=== PATIENT | male | born 1965 | race African-American/Black ===

== ENCOUNTER 2021-08-05 12:30 | Inpatient (IN) ==
[2021-08-05 14:35] LABS: Basophils # 0.1 10*3/uL (0.0-0.2); Basophils % 0.4 % (0.0-0.8); Hematocrit 43.2 VOL% (42.0-52.0); Hemoglobin 14.7 GM/DL (14.0-18.0); Immature Granulocytes % 0.5 %; Immature Granulocytes Absolute 0.08 #; Lymphocytes % 6.3 % (21.2-54.2); Mean Corpuscular Volume 103.6 FL (87-102); Mean Platelet Volume 8.9 FL (9.6-12.0); Monocytes % 8.1 % (1.7-12.7); Neutrophils % 84.7 % (38.7-73.9); Platelet Count 267 T/CUMM (130-400); Red Blood Count 4.17 MC/CUMM (3.8-5.5); Red Cell Distribution Width 13.2 % (9.3-17.3); White Blood Count 15.8 T/CUMM (4-12)
[2021-08-05 14:45] LABS: INR 0.9; PT Patient Result 10.3 SECS (10.5-12.0)
[2021-08-05 14:51] LABS: Calcium 9.4 MG/DL (8.5-10.1); Osmolality,Calculated 272.8 MOS/KG (273-304); Potassium 4.1 MMOL/L (3.5-5.1)
[2021-08-05] MEDS ORDERED: HEPARIN 1,000 UNIT/1 ML VIAL IV STA (15:16)
[2021-08-05] MEDS ORDERED: HEPARIN DRIP 25,000 UNITS/500 ML PREMIX IV SCH (15:30)
[2021-08-05] MEDS ORDERED: HEPARIN 5,000 UNIT/1 ML VIAL ONE (15:59)
[2021-08-05] MEDS ORDERED: ACETAMINOPHEN 325 MG TABLET PO PRN (16:21)
[2021-08-05] MEDS ORDERED: ONDANSETRON 4 MG/2 ML VIAL IV PRN (16:21)
[2021-08-05] MEDS ORDERED: chlordiazePOXIDE 10 MG CAPSULE PO SCH (17:00)
[2021-08-06] MEDS ORDERED: ceFAZolin 2,000 MG/50 ML DUPLEX IV ONE (06:30)
[2021-08-06] MEDS: PANTOPRAZOLE 40 MG TABLET PO SCH (08:25)
[2021-08-06] MEDS ORDERED: HEPARIN 5,000 UNIT/1 ML VIAL ONE (08:35)
[2021-08-06] MEDS ORDERED: ROCURONIUM 50 MG/5 ML VIAL IV ONE (08:40)
[2021-08-06] MEDS ORDERED: MIDAZOLAM 2 MG/2 ML VIAL ONE (08:40)
[2021-08-06] MEDS ORDERED: propofoL 200 MG/20 ML VIAL IV ONE (08:40)
[2021-08-06] MEDS ORDERED: LIDOCAINE 2% 5 ML VIAL ONE (08:40)
[2021-08-06] MEDS ORDERED: fentaNYL 100 MCG/2 ML VIAL ONE (08:40)
[2021-08-06] MEDS ORDERED: PHENYLEPHRINE 1 MG/10 ML SYRINGE IV ONE (08:50)
[2021-08-06] MEDS ORDERED: PHENYLEPHRINE DRIP 20 MG/250 ML PREMIX IV ONE (08:50)
[2021-08-06] MEDS ORDERED: ESMOLOL 100 MG/10 ML VIAL IV ONE (09:30)
[2021-08-06] MEDS ORDERED: LACTATED RINGERS 1,000 ML IV SCH ×2 (09:30→11:00)
[2021-08-06] MEDS ORDERED: DEXAMETHASONE 4 MG/1 ML VIAL ONE (10:10)
[2021-08-06] MEDS ORDERED: HEPARIN 10,000 UNIT/10 ML VIAL ONE (10:10)
[2021-08-06] MEDS ORDERED: ONDANSETRON 4 MG/2 ML VIAL ONE (10:10)
[2021-08-06] MEDS ORDERED: SEVOFLURANE 1 UNIT/15 MINUTE INH ONE ×4 (10:11→10:21)
[2021-08-06] MEDS ORDERED: ALTEPLASE 2 MG VIAL ONE (10:15)
[2021-08-06] MEDS ORDERED: SUGAMMADEX 200 MG/2 ML VIAL IV ONE (10:18)
[2021-08-06] MEDS ORDERED: TISSUE ADHESIVE 1 EACH APPLICATOR TOP ONE (10:43)
[2021-08-06] MEDS ORDERED: HYDROmorphone 2 MG/1 ML VIAL IV PRN ×2 (10:57→11:20)
[2021-08-06] MEDS ORDERED: ONDANSETRON 4 MG/2 ML VIAL IV PRN (11:20)
[2021-08-06] MEDS: ASPIRIN CHEW 81 MG TABLET PO SCH (13:35)
[2021-08-06] MEDS: chlordiazePOXIDE 25 MG CAPSULE PO SCH ×2 (13:35→20:50)
[2021-08-06] MEDS ORDERED: NICOTINE 21 MG/24 HR PATCH TRANSDERM PRN (17:10)
[2021-08-07] MEDS ORDERED: ENOXAPARIN 40 MG/0.4 ML SYRINGE SUBCUT SCH (05:00)
[2021-08-07 05:55] LABS: Basophils % 0.1 % (0.0-0.8); Eosinophils % 0.6 % (0.00-10.9); Hematocrit 32.9 VOL% (42.0-52.0); Immature Granulocytes % 0.3 %; Immature Granulocytes Absolute 0.02 #; Lymphocytes # 1.5 10*3/uL (1.4-4.0); Lymphocytes % 20.9 % (21.2-54.2); Mean Corpuscular HGB Conc 33.7 GM/DL (32-36); Mean Corpuscular Volume 105.4 FL (87-102); Monocytes % 12.3 % (1.7-12.7); Neutrophils % 65.8 % (38.7-73.9)
[2021-08-07 06:02] LABS: Calcium 8.5 MG/DL (8.5-10.1); Osmolality,Calculated 264.4 MOS/KG (273-304)
[2021-08-07 06:03] LABS: Hemoglobin 11.1 GM/DL (14.0-18.0); Platelet Count 190 T/CUMM (130-400); Red Blood Count 3.12 MC/CUMM (3.8-5.5)
[2021-08-07 07:23] VITALS: BP 143/81
[2021-08-07] MEDS: PANTOPRAZOLE 40 MG TABLET PO SCH (09:38)
[2021-08-07] MEDS: ASPIRIN CHEW 81 MG TABLET PO SCH (09:38)
[2021-08-07] MEDS: chlordiazePOXIDE 25 MG CAPSULE PO SCH (09:38)
== END 2021-08-07 10:00 | disposition home or self-care (01) | DRG 254 ==
LOC: N.ED 12:30 → N.EDINP 16:21 → N.3E 18:07
PROVIDERS: ADMIT Surgery; ATTEND Surgery

== ENCOUNTER 2021-09-24 06:12 | Inpatient (IN) ==
[2021-09-19 12:27] LABS: Basophils # 0.1 10*3/uL (0.0-0.2); Basophils % 0.7 % (0.0-0.8); Eosinophils # 0.3 10*3/uL (0.0-0.87); Eosinophils % 3.6 % (0.00-10.9); Hematocrit 37.3 VOL% (42.0-52.0); Hemoglobin 12.5 GM/DL (14.0-18.0); Immature Granulocytes % 0.4 %; Immature Granulocytes Absolute 0.03 #; Lymphocytes # 1.8 10*3/uL (1.4-4.0); Lymphocytes % 26.6 % (21.2-54.2); Mean Corpuscular HGB Conc 33.5 GM/DL (32-36); Mean Corpuscular Volume 103.6 FL (87-102); Mean Platelet Volume 9.1 FL (9.6-12.0); Monocytes % 12.6 % (1.7-12.7); Neutrophils % 56.1 % (38.7-73.9); Platelet Count 302 T/CUMM (130-400); Red Cell Distribution Width 13.5 % (9.3-17.3); White Blood Count 6.9 T/CUMM (4-12)
[2021-09-19 12:54] LABS: Alanine Aminotransferase 12 U/L (16-61); Albumin 3.7 G/DL (3.4-5.0); Alkaline Phosphatase 74 U/L (45-117); Aspartate Amino Transferase 17 U/L (0-37); Bilirubin,Total < 0.39 MG/DL (0.20-1.00); Blood Urea Nitrogen 9 MG/DL (7-18); Calcium 9.2 MG/DL (8.5-10.1); Carbon Dioxide 23 MMOL/L (21-32); Estimated Glom Filtration Rate 83 ML/MIN; Glucose 76 MG/DL (74-106); Osmolality,Calculated 276.4 MOS/KG (273-304); Sodium 140 MMOL/L (136-145); Total Protein 7.3 G/DL (6.4-8.2)
[2021-09-24] MEDS ORDERED: DIAZEPAM 5 MG TABLET PO ONE (06:41)
[2021-09-24] MEDS ORDERED: FAMOTIDINE 20 MG TABLET PO ONE (06:41)
[2021-09-24] MEDS ORDERED: LACTATED RINGERS 1,000 ML IV SCH (07:30)
[2021-09-24] MEDS ORDERED: HEPARIN 5,000 UNIT/1 ML VIAL ONE (07:56)
[2021-09-24] MEDS ORDERED: ROCURONIUM 50 MG/5 ML VIAL IV ONE (08:02)
[2021-09-24] MEDS ORDERED: propofoL 200 MG/20 ML VIAL IV ONE (08:02)
[2021-09-24] MEDS ORDERED: PHENYLEPHRINE 10 MG/1 ML VIAL IV ONE (08:02)
[2021-09-24] MEDS ORDERED: DESFLURANE 1 UNIT/15 MINUTE INH ONE (08:02)
[2021-09-24] MEDS ORDERED: fentaNYL 100 MCG/2 ML VIAL ONE ×2 (08:02→11:17)
[2021-09-24] MEDS ORDERED: LIDOCAINE 2% 5 ML VIAL ONE ×2 (08:02→11:50)
[2021-09-24] MEDS ORDERED: MIDAZOLAM 2 MG/2 ML VIAL ONE (08:29)
[2021-09-24] MEDS ORDERED: LACTATED RINGERS 1,000 ML IV ONE ×3 (08:49→11:43)
[2021-09-24] MEDS ORDERED: ESMOLOL 100 MG/10 ML VIAL IV ONE (08:54)
[2021-09-24] MEDS ORDERED: ONDANSETRON 4 MG/2 ML VIAL ONE (09:06)
[2021-09-24] MEDS ORDERED: KETOROLAC 30 MG/1 ML VIAL ONE (09:06)
[2021-09-24] MEDS ORDERED: ACETAMINOPHEN INJ 1,000 MG/100 ML VIAL IV ONE (09:06)
[2021-09-24] MEDS ORDERED: DEXAMETHASONE 4 MG/1 ML VIAL ONE (09:06)
[2021-09-24] MEDS ORDERED: PROTAMINE SULFATE 50 MG/5 ML VIAL IV ONE (11:43)
[2021-09-24] MEDS ORDERED: ONDANSETRON 4 MG/2 ML VIAL IV PRN ×2 (12:00→12:28)
[2021-09-24] MEDS: HYDROmorphone 2 MG/1 ML VIAL IV PRN ×4 (12:22→22:28)
[2021-09-24] MEDS: LACTATED RINGERS 1,000 ML IV SCH ×2 (15:45→22:27)
[2021-09-25] MEDS: HYDROmorphone 2 MG/1 ML VIAL IV PRN ×4 (04:40→23:59)
[2021-09-25 05:17] LABS: Basophils % 0.2 % (0.0-0.8); Eosinophils % 0.2 % (0.00-10.9); Immature Granulocytes % 0.2 %; Immature Granulocytes Absolute 0.02 #; Lymphocytes # 1.6 10*3/uL (1.4-4.0); Lymphocytes % 17.4 % (21.2-54.2); Mean Corpuscular HGB Conc 33.3 GM/DL (32-36); Mean Corpuscular Volume 105.1 FL (87-102); Mean Platelet Volume 8.9 FL (9.6-12.0); Monocytes % 12.9 % (1.7-12.7); Neutrophils % 69.1 % (38.7-73.9); Platelet Count 219 T/CUMM (130-400); Red Blood Count 3.14 MC/CUMM (3.8-5.5); Red Cell Distribution Width 13.5 % (9.3-17.3)
[2021-09-25 05:35] LABS: Calcium 8.3 MG/DL (8.5-10.1); Osmolality,Calculated 268.1 MOS/KG (273-304); Potassium 3.9 MMOL/L (3.5-5.1)
[2021-09-25] MEDS: LACTATED RINGERS 1,000 ML IV SCH (07:06)
[2021-09-25] MEDS: amLODIPine 5 MG TABLET PO SCH (08:51)
[2021-09-25] MEDS: CLOPIDOGREL 75 MG TABLET PO SCH (08:52)
[2021-09-25] MEDS: ASPIRIN CHEW 81 MG TABLET PO SCH (08:52)
[2021-09-25] MEDS ORDERED: ASPIRIN CHEW 81 MG TABLET PO SCH (09:00)
[2021-09-26 07:49] VITALS: BP 146/91
[2021-09-26] MEDS: CLOPIDOGREL 75 MG TABLET PO SCH (09:24)
[2021-09-26] MEDS: amLODIPine 5 MG TABLET PO SCH (09:24)
[2021-09-26] MEDS: ASPIRIN CHEW 81 MG TABLET PO SCH (09:24)
== END 2021-09-26 11:24 | disposition home or self-care (01) | DRG 254 ==
LOC: N.OR 06:12 → N.SDSINP 06:13 → EDSTATUS 08:00 → N.SDSINP 12:00 → N.5E 14:05
PROVIDERS: ADMIT Surgery; ATTEND Surgery